=== PATIENT | female | born 1965 ===

== ENCOUNTER 2017-05-17 07:41 | Day surgery (SDC) | payer OTHER ==
[2016-02-11 19:24] VITALS: BMI 32.3
[2017-05-17] MEDS ORDERED: Midazolam 2 MG/2 ML VIAL ONE (09:08)
[2017-05-17] MEDS ORDERED: Propofol 10 mg/ml Inj (20 ML) ONE (09:08)
[2017-05-17 10:12] VITALS: TEMP 97.3; O2SAT 100
[2017-05-17 12:32] VITALS: BP 101/56; PULSE 68; RESP 16
== END 2017-05-17 11:30 | disposition home or self-care (01) ==
LOC: C.ENDO 07:41
PROVIDERS: ATTEND Internal Medicine
DX: Z80.0 Family history of malignant neoplasm of digestive organs (principal); Z12.11 Encounter for screening for malignant neoplasm of colon; K44.9 Diaphragmatic hernia without obstruction or gangrene; K29.70 Gastritis, unspecified, without bleeding; K57.30 Diverticulosis of large intestine without perforation or abscess without bleeding
CPT/HCPCS: 43239; 45378; 82948; 84703; 88305; J2250; J2704; J3010